=== PATIENT | female | born 1975 | race Caucasian/White ===

== ENCOUNTER → 2016-12-04 | Outpatient (CLI) | payer MEDICAID ==
--- NOTE | ~2016-12-04 | NDGEN ---
PATIENT'S NAME: RUEL CORTES [facility] AGE: 41 Y [address] ROOM: [place] [address] LOCATION: [facility] ADMIT DATE: 12/04/2016 Neurodiagnostics DISCHARGE DATE: FAMILY PHYSICIAN: Baljinder Garcia MD ATTENDING PHYSICIAN: TIARA SHARIF PROCEDURE: ELECTROENCEPHALOGRAM DATE OF PROCEDURE: 12/04/2016 CLINICAL DIAGNOSIS: TIME: 12:35 p.m. INDICATION: This EEG was done for this patient who is a 41-year-old female patient who possibly had a syncopal event. The EEG was done to rule out any evidence of epileptiform features. DESCRIPTION: The general background rhythm was often obscured by blinking artifacts and some movement of the patient, but in general, there was a background rhythm consistent with an alpha range of between 9-12 hertz. The alpha rhythm was best seen in the posterior leads, but it was often interspersed in variable speed pattern throughout the whole study. Again, there were often some artifacts that seemed to be related to a brief movement of the patient. I did not appreciate any epileptiform features during the study and no seizures were recorded. IMPRESSION: This is a normal background rhythm and this electroencephalogram is showing alpha wave pattern with normal amplitudes between 15-30 microvolts. There was no epileptiform feature seen and no seizures recorded. MD CYNDEE LEON/hipolito /[id number] dtt: 12/07/16 1405 CHANTE JASON R. dtd: 12/04/162000
== END | disposition disaster alternative care site (69) ==
LOC: GNEU 10:43
DX: R55 Syncope and collapse (principal)